=== PATIENT | male | born 1960 | race Caucasian/White ===

== ENCOUNTER 2017-11-04 11:07 | Inpatient (IN) | payer OTHER ==
[2017-11-04 11:43] VITALS: BMI 38.0
--- NOTE | 2017-11-04 13:49 | HP ---
CIWA Score - CIWA Score Nausea/Vomitin Muscle Tremors: 3 Anxiety: 4-Mod. Anxious/Guarded Agitation: 2 Paroxysmal Sweats: 2 Orientation: 0-Oriented Tacttile Disturbances: 0-None Auditory Disturbances: 2-Mild Harshness/Frighten Visual Disturbances: 0-None Headache: 2-Mild CIWA-Ar Total Score: 20 Admission ROS S - HPI Chief Complaint: "I have been trying for many years to stop on my own, but I know that this is the first strep that I have to take." Patient is here to Detox from Alcohol. Allergies/Adverse Reactions: Allergies Allergy/AdvReac Type Severity Reaction Status Date / Time No Known Allergies Allergy Verified 11/04/17 11:55 History of Present Illness: Patient is a 57 YO male here to Detox from Alcohol. Patient has had 1 previous Detox admission at [facility] (2016 - did not complete). Patient has had several detox admission in last few years (most recent: [place], [place]; 02/2015). Longest recent period of sobriety: approx. 6 months (2015 - 08/2016). Exam Limitations: No Limitations - Ebola screening Have you traveled outside of the country in the last 21 days: No Have you had contact with anyone from an Ebola affected area: No Have you been sick,other than usual withdrawal symptoms: No Do you have a fever: No - Review of Systems Constitutional: Chills, Diaphoresis, Fever, Loss of Appetite, Malaise, Night Sweats, Changes in sleep, Unexplained wgt Loss (Lost approx. 30 lbs. over last 1.5 months.) EENT: reports: Tearing, Nose Congestion, Sinus Pressure Respiratory: reports: Shortness of Breath Cardiac: reports: Palpitations GI: reports: Diarrhea, Nausea, Poor Appetite, Vomiting, Abdominal cramping : reports: No Symptoms Reported Musculoskeletal: reports: Back Pain, Neck Pain, Joint Stiffness Integumentary: reports: No Symptoms Reported Neuro: reports: Headache, Numbness (Occasional in Left Foot.), Tingling ( Occasional in Left Foot.), Tremors Endocrine: reports: No Symptoms Reported Hematology: reports: No Symptoms Reported Psychiatric: reports: Judgement Intact, Mood/Affect Appropiate, Orientated x3, Anxious, Depressed (Meds. in past; None recently.) Other Systems: Reviewed and Negative Patient History - Patient Medical History Hx Anemia: No Hx Asthma: No Hx Chronic Obstructive Pulmonary Disease (COPD): No Hx Cancer: No Hx Cardiac Disorders: Yes (Murmur since (no treatment).) Hx Congestive Heart Failure: No Hx Hypertension: Yes (No meds. in past.) Hx Hypercholesterolemia: No Hx Pacemaker: No HX Cerebrovascular Accident: No Hx Seizures: No Hx Dementia: No Hx Diabetes: No Hx Gastrointestinal Disorders: No Hx Liver Disease: No Hx Genitourinary Disorders: No Hx Sexually Transmitted Disorders: No Hx Renal Disease (ESRD): No Hx Thyroid Disease: No Hx Human Immunodeficiency Virus (HIV): No (@ 04/26: LAST NEGATIVE) Hx Hepatitis C: No (@ 04/26: LAST NEGATIVE) Hx Depression: Yes (Meds. in past, none currently.) Hx Suicide Attempt: No (PATIENT DENIES CURRENT SI / HI.) Hx Bipolar Disorder: Yes (Was treated for Bipolar Disorder in [facility] (02/24 - 08/25).) Hx Schizophrenia: No Other Medical History: DENIES. - Patient Surgical History Past Surgical History: Yes Hx Neurologic Surgery: No Hx Cataract Extraction: No Hx Cardiac Surgery: No Hx Lung Surgery: No Hx Breast Surgery: No Hx Breast Biopsy: No Hx Abdominal Surgery: No Hx Appendectomy: No Hx Cholecystectomy: No Hx Genitourinary Surgery: No Hx Section: No Hx Orthopedic Surgery: Yes (ACL Repair, right knee in 1985) Other Surgical History: DENIES. Anesthesia Reaction: No - PPD History Previous Implant?: Yes Documented Results: Negative w/o proof Implanted On Prior [facility] Admission?: Yes Date: 09/09/15 PPD to be Administered?: Yes - Reproductive History Patient is a Female of Child Bearing Age (11 -55 yrs old): No (PATIENT IS MALE.) - Smoking Cessation Smoking history: Never smoked Have you smoked in the past 12 months: No Cigars Per Day: 0 Hx Chewing Tobacco Use: No Initiated information on smoking cessation: No - Substance & Tx. History Hx Alcohol Use: Yes Hx Substance Use: Yes Substance Use Type: Alcohol Hx Substance Use Treatment: Yes (Several Previous Admissions (Last: [facility], 08/2016); [facility] (2016)) - Substances Abused Alcohol-vodka/beer Route: Oral Frequency: Daily Amount used: 1 3/4 liters/1 case Age of first use: 13 Date of Last Use: 11/04/17 Family Disease History - Family Disease History Family Disease History: Heart Disease: Father ([place], ), Other: Father, Mother ([place], ), Sister () Admission Physical Exam [facility] - Vital Signs Vital Signs: Vital Signs - 24 hr 11/04/17 11:40 Temperature 97.2 F L Pulse Rate 100 H Respiratory 20 Rate Blood Pressure 153/95 - Physical General Appearance: Yes: Nourished, Appropriately Dressed, Mild Distress, Obese , Tremorous, Anxious HEENTM: Yes: Hearing grossly Normal, Normocephalic, Normal Voice, [place], Pharynx Normal Respiratory: Yes: Chest Non-Tender, Lungs Clear, No Respiratory Distress, No Accessory Muscle Use Neck: Yes: No masses,lesions,Nodules, Supple, Trachea in good position Breast: Yes: Breast Exam Deferred Cardiology: Yes: Regular Rhythm, Regular Rate, S1, S2 Abdominal: Yes: Normal Bowel Sounds, Non Tender, Soft, Protuberent Genitourinary: Yes: Within Normal Limits Back: Yes: CVA Tenderness, Decreased Range of Motion Musculoskeletal: Yes: Gait Steady, Back pain, Joint Stiffness, Muscle Pain Extremities: Yes: Normal Capillary Refill, Tremors Neurological: Yes: Fully Oriented, Alert, Normal Mood/Affect, Normal Response Integumentary: Yes: Normal Color, Dry, Warm Lymphatic: Yes: Within Normal Limits - Diagnostic (1) History of depression Current Visit: Yes Status: Suspected (2) Alcohol dependence with uncomplicated withdrawal Current Visit: Yes Status: Acute (3) History of bipolar disorder Current Visit: Yes Status: Acute (4) Hypertension Current Visit: Yes Status: Chronic Qualifiers: Hypertension type: unspecified Qualified Code(s): I10 - Essential (primary ) hypertension Comment: No Currently Prescribed Meds. (5) History of cardiac murmur Current Visit: Yes Status: Chronic Cleared for Admission [facility] - Detox or Rehab [facility] Level of Care: Medically Managed Detox Regimen/Protocol: Librium [facility] Breath Alcohol Content Breath Alcohol Content: 0.078 Urine Drug Screen - Results Drug Screen Negative: No Urine Drug Screen Results: TCA-Tricyclic Antidepress
[2017-11-04] MEDS ORDERED: MAGNESIUM HYDROX 2400MG/30ML ORAL SUSPENSION 30 ML CUP PO PRN (14:20)
[2017-11-04] MEDS ORDERED: guaiFENesin/D-METHORPHAN HB 10 ML UNIT-DOSE CUPS PO PRN (14:20)
[2017-11-04] MEDS ORDERED: MENTHOL/PHENOL 1 EACH UD MM PRN (14:20)
[2017-11-04] MEDS ORDERED: LOPERAMIDE HCL 2 MG CAPSULE PO PRN (14:20)
[2017-11-04] MEDS ORDERED: MAGNESIUM CITRATE 300 ML BOTTLE PO PRN (14:20)
[2017-11-04] MEDS ORDERED: ACETAMINOPHEN 325 MG TABLET (FP) PO PRN (14:20)
[2017-11-04] MEDS ORDERED: MAG HYDROX/AL HYDROX/SIMETH 30 ML UNIT-DOSE CUP PO PRN (14:20)
[2017-11-04] MEDS ORDERED: P-EPHED 60MG/TRIPROLIDI 2.5MG TABLET PO PRN (14:20)
[2017-11-04] MEDS ORDERED: cloNIDine HCL 0.1 MG TABLET PO ONE (14:30)
[2017-11-04] MEDS ORDERED: chlordiazePOXIDE HCL 25 MG CAPSULE PO ONE (14:35)
--- NOTE | 2017-11-04 17:07 | CONSULT ---
[facility] Psychiatric Consult - Data Date of interview: 11/04/17 Admission source: [facility] Identifying data: Patient is a 57 year old single male, without kids, domiciled , and currently unemployed. This is one of multiple admissions for patient. Pt. admitted to for alcohol dependence. Substance Abuse History: Smoking Cessation. Smoking history: Never smoked. Have you smoked in the past 12 months: No. Cigars Per Day: 0. Hx Chewing Tobacco Use: No. Initiated information on smoking cessation: No. - Substance & Tx. History. Hx Alcohol Use: Yes. Hx Substance Use: Yes. Substance Use Type : Alcohol. Hx Substance Use Treatment: Yes (Several Previous Admissions (Last: [facility], 08/2016); [facility] (2016)). - Substances Abused. Alcohol- vodka/beer. Route: Oral. Frequency: Daily. Amount used: 1 3/4 liters/1 case. Age of first use: 13. Date of Last Use: 11/04/17 Medical History: Murmur, hypertension Psychiatric History: Patient denies h/o psychiatric hospitalizations and suicide attempt. Pt. reports seeing a psychiatrist at [facility] in 2016. States he was diagnosed with bipolar disorder. Patient only recalls taking trazdone 300mg. Reports still having trazodone left over from his trazodone prescription. Last took trazodone 300mg 3 days ago. Pt. requesting trazodone 50mg. Physical/Sexual Abuse/Trauma History: Denies. Mental Status Exam - Mental Status Exam Alert and Oriented to: Time, Place, Person Cognitive Function: Good Patient Appearance: Well Groomed Mood: Hopeful, Euthymic Affect: Mood Congruent Patient Behavior: Appropriate, Cooperative Speech Pattern: Clear, Appropriate Voice Loudness: Normal Thought Process: Intact, Goal Oriented Thought Disorder: Not Present Hallucinations: Denies Suicidal Ideation: Denies Homicidal Ideation: Denies Insight/Judgement: Poor Sleep: Poorly Appetite: Fair Muscle strength/Tone: Normal Gait/Station: Normal Psychiatric Findings - Problem List ([place] 1, 2,3) (1) Alcohol dependence with uncomplicated withdrawal Current Visit: Yes Status: Acute (2) Insomnia Current Visit: Yes Status: Acute (3) Alcohol-induced mood disorder Current Visit: Yes Status: Suspected - Initial Treatment Plan Initial Treatment Plan: Psychoeducation provided. Detoxification in progress. Trazodone 50mg qhs ordered. Benefits and side effects discussed. Pt. made aware of the risk of priapism when accepting trazodone. Verbal consent given.
[2017-11-04] MEDS: chlordiazePOXIDE HCL 25 MG CAPSULE PO SCH ×2 (17:24→22:35)
[2017-11-04] MEDS: chlordiazePOXIDE HCL 25 MG CAPSULE PO PRN (20:24)
[2017-11-04] MEDS ORDERED: MELATONIN 5 MG TABLETS PO PRN (22:00)
[2017-11-04] MEDS: THIAMINE HCL 100 MG TABLET (FP) PO SCH (22:34)
[2017-11-04] MEDS: traZODone HCL 50 MG TABLET (FP) PO SCH (22:35)
[2017-11-05] MEDS: chlordiazePOXIDE HCL 25 MG CAPSULE PO SCH ×4 (05:32→22:43)
[2017-11-05 10:19] LABS: HEMATOCRIT 43.6 % (35.4-49); MCH 31.2 pg (25.7-33.7); MCHC 34.5 g/dl (32.0-35.9); MEAN CELL VOLUME 90.5 fl (80-96); MEAN PLT VOLUME 7.8 fl (7.5-11.1); PLATELET COUNT 215 K/MM3 (134-434); RBC 4.82 M/mm3 (4.00-5.60); RDW 13.2 % (11.9-15.9); WHITE BLOOD COUNT 6.5 K/mm3 (4.0-10.0)
[2017-11-05] MEDS: PRENATAL VITAMINS W/ FOLIC ACID TABLET (FP) PO SCH (10:38)
[2017-11-05 10:39] LABS: URINE APPEARANCE TURBID; URINE BILIRUBIN NEGATIVE (<2.0 mg/dL); URINE COLOR YELLOW; URINE GLUCOSE (UA) 1+ (NEGATIVE); URINE KETONE NEGATIVE (NEGATIVE); URINE LEUK ESTERASE NEGATIVE (NEGATIVE); URINE NITRITE NEGATIVE (NEGATIVE); URINE UROBILINOGEN NEGATIVE mg/dL (0.2-1.0)
[2017-11-05 10:39] LABS: CHLORIDE 99 mmol/L (98-107); POTASSIUM 4.5 mmol/L (3.5-5.1); SODIUM 136 mmol/L (136-145)
[2017-11-05 10:42] LABS: URINE PROTEIN 1+ (NEGATIVE)
[2017-11-05 10:47] LABS: URINE BACTERIA RARE /hpf (NONE SEEN); URINE MUCUS RARE
[2017-11-05 10:47] LABS: ALBUMIN 3.8 g/dl (3.4-5.0); ALK PHOS 76 U/L (45-117); ANION GAP 11 (8-16); BILIRUBIN,TOTAL 0.8 mg/dL (0.2-1.0); BLOOD UREA NITROGEN 13 mg/dL (7-18); CALCIUM 8.6 mg/dL (8.5-10.1); CO2 26 mmol/L (21-32); CREATININE 1.2 mg/dL (0.7-1.3); GLUCOSE,RANDOM 143 mg/dL (74-106); SGOT/AST 64 U/L (15-37); SGPT/ALT 55 U/L (12-78); TOT PROT 8.1 g/dl (6.4-8.2)
[2017-11-05] MEDS ORDERED: cloNIDine HCL 0.1 MG TABLET PO ONE (14:00)
[2017-11-05] MEDS: chlordiazePOXIDE HCL 25 MG CAPSULE PO PRN (15:17)
--- NOTE | 2017-11-05 18:53 | PN ---
[facility] CIWA - CIWA Score Nausea/Vomitin-No Nausea/No Vomiting Muscle Tremors: 4-Moderate,w/Arms Extend Anxiety: 5 Agitation: 4-Moderately Restless Paroxysmal Sweats: 3 Orientation: 0-Oriented Tacttile Disturbances: 1-Very Mild Itch/Numbness Auditory Disturbances: 0-None Visual Disturbances: 2-Mild Sensitivity Headache: 0-None Present CIWA-Ar Total Score: 19 BHS Progress Note (SOAP) Subjective: Body Aches, Sweating, Tremors, Anxious. Objective: PATIENT A & O X 3, OBSERVED AMBULATING ON UNIT. NO ACUTE DISTRESS. 11/05/17 18:50 Vital Signs Temperature 97.1 F L 11/05/17 18:30 Pulse Rate 109 H 11/05/17 18:30 Respiratory Rate 21 11/05/17 18:30 Blood Pressure 148/93 11/05/17 18:30 O2 Sat by Pulse Oximetry (%) Laboratory Tests 11/04/17 11/05/17 11/05/17 12:00 05:30 05:30 WBC 6.5 RBC 4.82 Hgb 15.0 Hct 43.6 MCV 90.5 MCH 31.2 MCHC 34.5 RDW 13.2 Plt Count 215 MPV 7.8 Sodium 136 Potassium 4.5 Chloride 99 Carbon Dioxide 26 Anion Gap 11 BUN 13 Creatinine 1.2 Creat Clearance w eGFR > 60 Random Glucose 143 H D Calcium 8.6 Total Bilirubin 0.8 AST 64 H D ALT 55 D Alkaline Phosphatase 76 Total Protein 8.1 Albumin 3.8 Urine Color Urine Appearance Urine pH Ur Specific [place] Urine Protein Urine Glucose (UA) Urine Ketones Urine Blood Urine Nitrite Urine Bilirubin Urine Urobilinogen Ur Leukocyte Esterase Urine WBC (Auto) Urine RBC (Auto) Urine Bacteria Urine Mucus RPR Titer HIV 1&2 Antibody Screen Negative HIV P24 Antigen Negative 11/05/17 11/05/17 05:30 05:50 WBC RBC Hgb Hct MCV MCH MCHC RDW Plt Count MPV Sodium Potassium Chloride Carbon Dioxide Anion Gap BUN Creatinine Creat Clearance w eGFR Random Glucose Calcium Total Bilirubin AST ALT Alkaline Phosphatase Total Protein Albumin Urine Color Yellow Urine Appearance Turbid Urine pH 5.0 Ur Specific [place] 1.023 Urine Protein 1+ H Urine Glucose (UA) 1+ H Urine Ketones Negative Urine Blood Negative Urine Nitrite Negative Urine Bilirubin Negative Urine Urobilinogen Negative Ur Leukocyte Esterase Negative Urine WBC (Auto) None Urine RBC (Auto) 4 Urine Bacteria Rare Urine Mucus Rare RPR Titer Nonreactive HIV 1&2 Antibody Screen HIV P24 Antigen LABS NOTED. Assessment: 11/05/17 18:50 WITHDRAWAL SYMPTOMS. HYPERTENSION. Plan: CONTINUE DETOX. INCREASE DAILY PO FLUID INTAKE. CLONIDINE, 0.1 MG PO X 1, FOLLOWED BY CLONIDINE, 0.1 MG PO BID FOR SEVERE WITHDRAWAL SYMPTOMS AND FOR ELEVATED BP. PRN FLEXERIL FOR BODY ACHES/ MUSCLE SPASMS. BGM ACBK FOR ELEVATED ADMISSION RANDOM GLUCOSE LEVEL.
[2017-11-05] MEDS: traZODone HCL 50 MG TABLET (FP) PO SCH (22:43)
[2017-11-05] MEDS: cloNIDine HCL 0.1 MG TABLET PO SCH (22:43)
[2017-11-05] MEDS: THIAMINE HCL 100 MG TABLET (FP) PO SCH (22:43)
[2017-11-06] MEDS: chlordiazePOXIDE HCL 25 MG CAPSULE PO SCH ×2 (06:11→10:46)
[2017-11-06] MEDS: CYCLOBENZAPRINE HCL 10 MG TABLET (FP) PO PRN ×3 (06:15→22:30)
[2017-11-06] MEDS: cloNIDine HCL 0.1 MG TABLET PO SCH ×2 (10:46→22:30)
[2017-11-06] MEDS: PRENATAL VITAMINS W/ FOLIC ACID TABLET (FP) PO SCH (10:46)
[2017-11-06] MEDS: IBUPROFEN 400 MG TABLET (FP) PO PRN ×2 (10:48→22:32)
[2017-11-06] MEDS: chlordiazePOXIDE HCL 25 MG CAPSULE PO PRN ×2 (12:43→18:39)
[2017-11-06] MEDS: chlordiazePOXIDE 5 MG CAPSULE PO SCH ×2 (16:39→22:30)
--- NOTE | 2017-11-06 17:37 | PN ---
S CIWA - CIWA Score Nausea/Vomitin-Mild Nausea/No Vomiting Muscle Tremors: 2 Anxiety: 4-Mod. Anxious/Guarded Agitation: 4-Moderately Restless Paroxysmal Sweats: 2 Orientation: 0-Oriented Tacttile Disturbances: 0-None Auditory Disturbances: 0-None Visual Disturbances: 0-None Headache: 0-None Present CIWA-Ar Total Score: 13 BHS Progress Note (SOAP) Subjective: pt states that he is not that good- was able to sleep last night Objective: 11/06/17 17:33 Vital Signs - 24 hr 11/05/17 11/05/17 11/06/17 18:30 23:02 00:30 Temperature 97.1 F L 96.6 F L Pulse Rate 109 H 98 H Respiratory 21 18 16 Rate Blood Pressure 148/93 177/107 11/06/17 11/06/17 11/06/17 06:39 07:35 09:29 Temperature 97.0 F L 97.2 F L 98.9 F Pulse Rate 89 93 H 94 H Respiratory 18 18 18 Rate Blood Pressure 156/100 153/101 171/98 11/06/17 13:46 Temperature 97.2 F L Pulse Rate 104 H Respiratory 20 Rate Blood Pressure 142/103 increased pulse rate and BP Laboratory Tests 11/04/17 11/05/17 11/05/17 12:00 05:30 05:30 WBC 6.5 RBC 4.82 Hgb 15.0 Hct 43.6 MCV 90.5 MCH 31.2 MCHC 34.5 RDW 13.2 Plt Count 215 MPV 7.8 Sodium 136 Potassium 4.5 Chloride 99 Carbon Dioxide 26 Anion Gap 11 BUN 13 Creatinine 1.2 Creat Clearance w eGFR > 60 Random Glucose 143 H D Calcium 8.6 Total Bilirubin 0.8 AST 64 H D ALT 55 D Alkaline Phosphatase 76 Total Protein 8.1 Albumin 3.8 Urine Color Urine Appearance Urine pH Ur Specific [place] Urine Protein Urine Glucose (UA) Urine Ketones Urine Blood Urine Nitrite Urine Bilirubin Urine Urobilinogen Ur Leukocyte Esterase Urine WBC (Auto) Urine RBC (Auto) Urine Bacteria Urine Mucus RPR Titer Hep C Ab Diagnostic Liver Fibrosis Interp HIV 1&2 Antibody Screen Negative HIV P24 Antigen Negative 11/05/17 11/05/17 11/05/17 05:30 05:30 05:50 WBC RBC Hgb Hct MCV MCH MCHC RDW Plt Count MPV Sodium Potassium Chloride Carbon Dioxide Anion Gap BUN Creatinine Creat Clearance w eGFR Random Glucose Calcium Total Bilirubin AST ALT Alkaline Phosphatase Total Protein Albumin Urine Color Yellow Urine Appearance Turbid Urine pH 5.0 Ur Specific [place] 1.023 Urine Protein 1+ H Urine Glucose (UA) 1+ H Urine Ketones Negative Urine Blood Negative Urine Nitrite Negative Urine Bilirubin Negative Urine Urobilinogen Negative Ur Leukocyte Esterase Negative Urine WBC (Auto) None Urine RBC (Auto) 4 Urine Bacteria Rare Urine Mucus Rare RPR Titer Nonreactive Hep C Ab Diagnostic <0.1 Liver Fibrosis Interp HIV 1&2 Antibody Screen HIV P24 Antigen labs WNL Assessment: 11/06/17 17:36 Patient is here to Detox from Alcohol. Plan: continue detox protocol d/w pt that he can access the prn meds if he needs for Sx relief
[2017-11-06] MEDS: traZODone HCL 50 MG TABLET (FP) PO SCH (22:30)
[2017-11-06] MEDS: THIAMINE HCL 100 MG TABLET (FP) PO SCH (22:30)
[2017-11-07] MEDS: chlordiazePOXIDE 5 MG CAPSULE PO SCH ×2 (05:36→10:28)
[2017-11-07] MEDS: CYCLOBENZAPRINE HCL 10 MG TABLET (FP) PO PRN ×2 (05:38→18:02)
[2017-11-07] MEDS: PRENATAL VITAMINS W/ FOLIC ACID TABLET (FP) PO SCH (10:28)
[2017-11-07] MEDS: cloNIDine HCL 0.1 MG TABLET PO SCH ×2 (10:28→22:37)
--- NOTE | 2017-11-07 11:10 | EKG ---
Test Reason : Blood Pressure : / mmHG Vent. Rate : 104 BPM Atrial Rate : 104 BPM P-R Int : 174 ms QRS Dur : 104 ms QT Int : 352 ms P-R-T Axes : 073 045 075 degrees QTc Int : 462 ms SINUS TACHYCARDIA ANTEROSEPTAL INFARCT , AGE UNDETERMINED ABNORMAL ECG NO PREVIOUS ECGS AVAILABLE Confirmed by SCAR VAZQUEZ MD ([id number]) on 11/07/2017 11:10:16 AM Referred By: Confirmed By:SCAR VAZQUEZ MD
[2017-11-07] MEDS: chlordiazePOXIDE HCL 25 MG CAPSULE PO PRN (12:46)
--- NOTE | 2017-11-07 13:30 | PN ---
BHS Progress Note (SOAP) Subjective: ANXIETY,SWEATS,SLIGHT TREMORS,"SICK TO MY STOMACH". Objective: 11/07/17 13:28 Vital Signs 11/07/17 11/07/17 06:24 09:26 Temperature 96.9 F L 96.7 F L Pulse Rate 80 72 Respiratory 18 18 Rate Blood Pressure 157/100 136/74 Laboratory Tests 11/04/17 11/05/17 11/05/17 12:00 05:30 05:30 WBC 6.5 RBC 4.82 Hgb 15.0 Hct 43.6 MCV 90.5 MCH 31.2 MCHC 34.5 RDW 13.2 Plt Count 215 MPV 7.8 Sodium 136 Potassium 4.5 Chloride 99 Carbon Dioxide 26 Anion Gap 11 BUN 13 Creatinine 1.2 Creat Clearance w eGFR > 60 Random Glucose 143 H D Calcium 8.6 Total Bilirubin 0.8 AST 64 H D ALT 55 D Alkaline Phosphatase 76 Total Protein 8.1 Albumin 3.8 Urine Color Urine Appearance Urine pH Ur Specific [place] Urine Protein Urine Glucose (UA) Urine Ketones Urine Blood Urine Nitrite Urine Bilirubin Urine Urobilinogen Ur Leukocyte Esterase Urine WBC (Auto) Urine RBC (Auto) Urine Bacteria Urine Mucus RPR Titer Hep C Ab Diagnostic Liver Fibrosis Interp HIV 1&2 Antibody Screen Negative HIV P24 Antigen Negative 11/05/17 11/05/17 11/05/17 05:30 05:30 05:50 WBC RBC Hgb Hct MCV MCH MCHC RDW Plt Count MPV Sodium Potassium Chloride Carbon Dioxide Anion Gap BUN Creatinine Creat Clearance w eGFR Random Glucose Calcium Total Bilirubin AST ALT Alkaline Phosphatase Total Protein Albumin Urine Color Yellow Urine Appearance Turbid Urine pH 5.0 Ur Specific [place] 1.023 Urine Protein 1+ H Urine Glucose (UA) 1+ H Urine Ketones Negative Urine Blood Negative Urine Nitrite Negative Urine Bilirubin Negative Urine Urobilinogen Negative Ur Leukocyte Esterase Negative Urine WBC (Auto) None Urine RBC (Auto) 4 Urine Bacteria Rare Urine Mucus Rare RPR Titer Nonreactive Hep C Ab Diagnostic <0.1 Liver Fibrosis Interp HIV 1&2 Antibody Screen HIV P24 Antigen Assessment: 11/07/17 13:29 WITHDRAWAL SX Plan: CONTINUE DETOX MONITOR PATIENT'S FUTHER GI STATUS--ZOFRAN IF NEEDED.
[2017-11-07] MEDS: chlordiazePOXIDE HCL 10 MG CAPSULE PO SCH ×2 (18:01→22:37)
[2017-11-07] MEDS: traZODone HCL 50 MG TABLET (FP) PO SCH (22:37)
[2017-11-07] MEDS: THIAMINE HCL 100 MG TABLET (FP) PO SCH (22:37)
[2017-11-08] MEDS: chlordiazePOXIDE HCL 10 MG CAPSULE PO SCH (05:30)
[2017-11-08] MEDS ORDERED: cloNIDine HCL 0.1 MG TABLET PO ONE (05:48)
[2017-11-08 06:31] VITALS: TEMP 97
[2017-11-08 07:27] VITALS: BP 165/102; PULSE 81
[2017-11-08] MEDS: cloNIDine HCL 0.1 MG TABLET PO SCH (09:48)
[2017-11-08] MEDS: PRENATAL VITAMINS W/ FOLIC ACID TABLET (FP) PO SCH (09:49)
--- NOTE | 2017-11-08 14:41 | DS ---
[facility] Detox Discharge Summary Admission Date: 11/04/17 Discharge Date: 11/08/17 - History Present History: Alcohol Dependence Additional Comments: DETOX COMPLETED. ALERT O X 3. NAD. F/U AT [facility]. Pertinent Past History: PLEASE SEE DX BELOW - Physical Exam Results Vital Signs: Vital Signs Temperature 97 F L 11/08/17 06:30 Pulse Rate 81 11/08/17 07:27 Respiratory Rate 20 11/08/17 06:30 Blood Pressure 165/102 11/08/17 07:27 O2 Sat by Pulse Oximetry (%) Pertinent Admission Physical Exam Findings: WITHDRAWAL SX Laboratory Tests 11/04/17 11/05/17 11/05/17 12:00 05:30 05:30 WBC 6.5 RBC 4.82 Hgb 15.0 Hct 43.6 MCV 90.5 MCH 31.2 MCHC 34.5 RDW 13.2 Plt Count 215 MPV 7.8 Sodium 136 Potassium 4.5 Chloride 99 Carbon Dioxide 26 Anion Gap 11 BUN 13 Creatinine 1.2 Creat Clearance w eGFR > 60 Random Glucose 143 H D Calcium 8.6 Total Bilirubin 0.8 AST 64 H D ALT 55 D Alkaline Phosphatase 76 Total Protein 8.1 Albumin 3.8 Urine Color Urine Appearance Urine pH Ur Specific [place] Urine Protein Urine Glucose (UA) Urine Ketones Urine Blood Urine Nitrite Urine Bilirubin Urine Urobilinogen Ur Leukocyte Esterase Urine WBC (Auto) Urine RBC (Auto) Urine Bacteria Urine Mucus RPR Titer Hep C Ab Diagnostic Liver Fibrosis Interp HIV 1&2 Antibody Screen Negative HIV P24 Antigen Negative 11/05/17 11/05/17 11/05/17 05:30 05:30 05:50 WBC RBC Hgb Hct MCV MCH MCHC RDW Plt Count MPV Sodium Potassium Chloride Carbon Dioxide Anion Gap BUN Creatinine Creat Clearance w eGFR Random Glucose Calcium Total Bilirubin AST ALT Alkaline Phosphatase Total Protein Albumin Urine Color Yellow Urine Appearance Turbid Urine pH 5.0 Ur Specific [place] 1.023 Urine Protein 1+ H Urine Glucose (UA) 1+ H Urine Ketones Negative Urine Blood Negative Urine Nitrite Negative Urine Bilirubin Negative Urine Urobilinogen Negative Ur Leukocyte Esterase Negative Urine WBC (Auto) None Urine RBC (Auto) 4 Urine Bacteria Rare Urine Mucus Rare RPR Titer Nonreactive Hep C Ab Diagnostic <0.1 Liver Fibrosis Interp HIV 1&2 Antibody Screen HIV P24 Antigen - Treatment Hospital Course: Detox Protocol Followed, Detoxed Safely, Responded well, Discharged Condition Good - Medication Discharge Medications: Ambulatory Orders NK [No Known Home Medication] 11/04/17 - Diagnosis (1) Alcohol dependence with uncomplicated withdrawal Status: Acute (2) History of cardiac murmur Status: Chronic (3) Hypertension Status: Chronic Qualifiers: Hypertension type: essential hypertension Qualified Code(s): I10 - Essential (primary) hypertension - AMA Did Patient Leave Against Medical Advice: No
== END 2017-11-08 09:49 | disposition home or self-care (01) | DRG 775 ==
LOC: YASAS 11:07 → Y3N 14:10
PROVIDERS: ADMIT Surgery; ATTEND Surgery
PROC: HZ2ZZZZ Detoxification Services for Substance Abuse Treatment (ICD-10-PCS; principal; 2017-11-04)
DX: F10.230 Alcohol dependence with withdrawal, uncomplicated (principal); F10.24 Alcohol dependence with alcohol-induced mood disorder; F31.9 Bipolar disorder, unspecified; I10 Essential (primary) hypertension; R01.1 Cardiac murmur, unspecified; G47.00 Insomnia, unspecified
CPT/HCPCS: 36415; 80053; 81003; 81015; 85027; 86593; 86803; 87389; 93005; 93010; J0735

== ENCOUNTER 2017-12-15 16:28 | Emergency (ER) | payer SELFPAY ==
[2017-12-15 16:43] VITALS: BP 109/69; PULSE 100; TEMP 98.2; BMI 34.2
--- NOTE | 2017-12-15 17:46 | PDOC ---
Attending Attestation - Resident Resident Name: JuanchoTylor - ED Attending Attestation I have performed the following: I have examined & evaluated the patient, The case was reviewed & discussed with the resident, I agree w/resident's findings & plan, Exceptions are as noted - HPI HPI: 12/15/17 17:45 57y M hx of htn, etoh abuse, presents for detox. last drink at 11am. hx of ICU admission for 'withdrawals'. endorsers some nbnb vomiting and mild epigastric pain. pt ntoes symptoms consistent with prior Denies any hallucinations, cp, fever, abd pain,
[2017-12-15] MEDS ORDERED: chlordiazePOXIDE HCL 25 MG CAPSULE PO ONE (17:50)
[2017-12-15] MEDS ORDERED: ONDANSETRON 4 MG/2 ML VIAL IVPUSH ONE (17:50)
[2017-12-15] MEDS ORDERED: DICYCLOMINE HCL 10 MG CAPSULE PO ONE (17:51)
[2017-12-15] MEDS ORDERED: MAG HYDROX/AL HYDROX/SIMETH -MYLANTA- ORAL SUSPENSION PO ONE (17:51)
[2017-12-15] MEDS ORDERED: FAMOTIDINE 20 MG/50 ML IVPB 20 MG in PREMIX 50 IVPB ONE (17:51)
[2017-12-15] MEDS ORDERED: SODIUM CHLORIDE 1,000 ML IV ONE (17:51)
[2017-12-15] MEDS ORDERED: chlordiazePOXIDE HCL 25 MG CAPSULE ONE (18:53)
[2017-12-15] MEDS ORDERED: DICYCLOMINE HCL 10 MG CAPSULE ONE (18:54)
[2017-12-15] MEDS ORDERED: ONDANSETRON 4 MG/2 ML VIAL ONE (18:54)
[2017-12-15] MEDS ORDERED: MAG HYDROX/AL HYDROX/SIMETH 30 ML UNIT-DOSE CUP ONE (18:54)
[2017-12-15] MEDS ORDERED: FAMOTIDINE 20 MG/50 ML IVPB 20 MG/50 ML MG IVPB ONE (18:54)
--- NOTE | 2017-12-15 19:00 | PDOC ---
History of Present Illness - General Chief Complaint: Alcohol intoxication Stated Complaint: DETOX Time Seen by Provider: 12/15/17 16:58 History Source: Patient Exam Limitations: No Limitations - History of Present Illness Initial Comments: 12/15/17 19:04 57y M hx of htn, etoh abuse, presents for detox. last drink at 11am. hx of ICU admission for 'withdrawals', endorsers some nbnb vomiting and mild epigastric pain. pt ntoes symptoms consistent with prior Denies any hallucinations, cp, fever, abd pain, Past History - Past Medical History Allergies/Adverse Reactions: Allergies Allergy/AdvReac Type Severity Reaction Status Date / Time No Known Allergies Allergy Verified 12/15/17 16:41 Home Medications: Ambulatory Orders NK [No Known Home Medication] 11/04/17 Anemia: No Asthma: No Cancer: No Cardiac Disorders: Yes (Murmur since (no treatment).) CVA: No COPD: No CHF: No Dementia: No Diabetes: No GI Disorders: No Disorders: No HTN: Yes (No meds. in past.) Hypercholesterolemia: No Kidney Stones: No Liver Disease: No Seizures: No Thyroid Disease: No - Surgical History Abdominal Surgery: No Appendectomy: No Cardiac Surgery: No Cholecystectomy: No Lung Surgery: No Neurologic Surgery: No Orthopedic Surgery: Yes (ACL Repair, right knee in 1985) - Reproductive History Testicular Surgery: No - Suicide/Smoking/Psychosocial Hx Smoking History: Never smoked Have you smoked in the past 12 months: No Cigars Per Day: 0 Hx Alcohol Use: Yes Drug/Substance Use Hx: Yes Substance Use Type: Alcohol Hx Substance Use Treatment: Yes (Several Previous Admissions (Last: [facility], 08/2016); [facility] (2016)) *Physical Exam - Vital Signs Last Vital Signs Temp Pulse Resp BP Pulse Ox 98.2 F 100 H 18 109/69 96 12/15/17 16:41 12/15/17 16:41 12/15/17 16:41 12/15/17 16:41 12/15/17 16:41 ED Treatment Course - LABORATORY CBC & Chemistry Diagram: 12/15/17 18:42 12/15/17 18:42 Medical Decision Making - Medical Decision Making 12/15/17 18:59 pt notes that he meant to go to [facility] and not [facility] He is awake, alert, oriented x 3, atremmulous. ambulatory iwth normal gait. he is not clinically intoxicated nor in acute withdrawal will dc the patient to go to [facility] as he requests to leave and wants to go there for detox. *DC/Admit/Observation/Transfer Diagnosis at time of Disposition: Alcohol abuse - Discharge Dispostion Disposition: HOME Condition at time of disposition: Improved Decision to Admit order: No - Referrals - Patient Instructions Printed Discharge Instructions: DI for Alcohol Abuse Additional Instructions: Return to the emergency department immediately with ANY new, persistent or worsening symptoms. You MUST call and follow up with your doctor tomorrow for further evaluation of your symptoms. Results were discussed with you. Please make sure your doctor reviews the results of your emergency evaluation. If you had any xrays during your visit, it was read preliminarily by myself, a Radiologist will review it and if there are any additional findings we will call you. - Post Discharge Activity
[2017-12-15 19:08] LABS: BASO % 0.9 % (0-2.0); EOS % 4.2 % (0-4.5); HEMOGLOBIN 12.8 GM/dL (11.7-16.9); LYMPH % 41.3 % (8-40); MCH 32.1 pg (25.7-33.7); MCHC 34.5 g/dl (32.0-35.9); MEAN CELL VOLUME 92.9 fl (80-96); MEAN PLT VOLUME 7.8 fl (7.5-11.1); NEUT % 44.6 % (42.8-82.8); PLATELET COUNT 427 K/MM3 (134-434); RBC 3.98 M/mm3 (4.00-5.60); RDW 15.4 % (11.9-15.9); WHITE BLOOD COUNT 6.8 K/mm3 (4.0-10.0)
--- NOTE | 2017-12-15 19:27 | PDOC ---
History of Present Illness - General Chief Complaint: Alcohol intoxication Stated Complaint: DETOX Time Seen by Provider: 12/15/17 16:58 History Source: Patient Exam Limitations: No Limitations - History of Present Illness Initial Comments: 12/15/17 18:59 Mr. Crooks is a 57 yo M with a hx of HTN and alcoholism who presents to the emergency department for alcohol detoxification. His last drink was at 11am, as he was drinking over the past 24 hours. He denies a hx of tactile, visual, and auditory hallucinations, but endorses having a headache, tremors, anxiety, nausea, vomiting (30x over past 24 hours without blood), and diarrhea. His last withdrawal was 11/29/2017. Denies the following: fevers, chills, recent visual changes, chest pain, SOB, dysuria, hematuria, melena, hematochezia, and leg pain /swelling. Shx: L and R knee replacement Meds: trazadone Allergies: NKDA Social hx: Denies tobacco products and current substance abuse. Drinks "dozens of beers" per day wit vodka. Past History - Past Medical History Allergies/Adverse Reactions: Allergies Allergy/AdvReac Type Severity Reaction Status Date / Time No Known Allergies Allergy Verified 12/15/17 16:41 Home Medications: Ambulatory Orders NK [No Known Home Medication] 11/04/17 Anemia: No Asthma: No Cancer: No Cardiac Disorders: Yes (Murmur since (no treatment).) CVA: No COPD: No CHF: No Dementia: No Diabetes: No GI Disorders: No Disorders: No HTN: Yes (No meds. in past.) Hypercholesterolemia: No Kidney Stones: No Liver Disease: No Seizures: No Thyroid Disease: No - Surgical History Abdominal Surgery: No Appendectomy: No Cardiac Surgery: No Cholecystectomy: No Lung Surgery: No Neurologic Surgery: No Orthopedic Surgery: Yes (ACL Repair, right knee in 1985) - Reproductive History Testicular Surgery: No - Suicide/Smoking/Psychosocial Hx Smoking History: Never smoked Have you smoked in the past 12 months: No Cigars Per Day: 0 Hx Alcohol Use: Yes Drug/Substance Use Hx: Yes Substance Use Type: Alcohol Hx Substance Use Treatment: Yes (Several Previous Admissions (Last: [facility], 08/2016); [facility] (2016)) Review of Systems - Review of Systems Able to Perform ROS?: Yes Constitutional: No: Chills, Diaphoresis, Fever HEENTM: No: Eye Pain, Recent change in vision, Nose Pain, Throat Pain, Mouth Pain Respiratory: No: Cough, Shortness of Breath Cardiac (ROS): No: Chest Pain, Palpitations, Syncope, Chest Tightness ABD/GI: Yes: Diarrhea, Nausea, Vomiting, Abdominal cramping. No: Constipated, Difficulty Swallowing, Poor Fluid Intake, Rectal Bleeding, Tarry Stools : No: Burning, Dysuria, Hematuria Musculoskeletal: No: Back Pain, Muscle Weakness Integumentary: No: Rash Neurological: Yes: Headache, Tremors. No: Numbness, Weakness Psychiatric: No: Stressors Endocrine: No: Excessive Sweating, Unexplained Weight Gain Hematologic/Lymphatic: No: Anemia *Physical Exam - Vital Signs Last Vital Signs Temp Pulse Resp BP Pulse Ox 98.2 F 100 H 18 109/69 96 12/15/17 16:41 12/15/17 16:41 12/15/17 16:41 12/15/17 16:41 12/15/17 16:41 - Physical Exam General Appearance: Yes: Nourished, Appropriately Dressed HEENT: positive: EOMI, MERRILL Neck: positive: Trachea midline. negative: Lymphadenopathy (R), Lymphadenopathy (L) Respiratory/Chest: positive: Lungs Clear, Normal Breath Sounds Cardiovascular: positive: Regular Rhythm, Regular Rate, S1, S2. negative: Systolic Murmur Vascular Pulses: Dorsalis-Pedis (R): 3+, Doralis-Pedis (L): 3+ Gastrointestinal/Abdominal: positive: Normal Bowel Sounds, Tender (epigastric region) Lymphatic: negative: Adenopathy Musculoskeletal: positive: Normal Inspection. 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 Initial vitals: Initial Vital Signs Temp Pulse Resp BP Pulse Ox 98.2 F 100 H 18 109/69 96 09/06/18 16:41 12/15/17 16:41 12/15/17 16:41 12/15/17 16:41 12/15/17 16:41 Work up: Patient presented to the emergency department on behalf of a recommendation by his friend Tyler Christiancer who recommended that he come to the [facility] for detoxification given that Mr. Crooks does not have insurance. He wished to be discharged from our hospital as he made a mistake coming here instead of [facility]. He was clinically sober to proceed to [facility]. *DC/Admit/Observation/Transfer Diagnosis at time of Disposition: Alcohol abuse - Discharge Dispostion Disposition: HOME Condition at time of disposition: Improved Decision to Admit order: No - Referrals - Patient Instructions Printed Discharge Instructions: DI for Alcohol Abuse Additional Instructions: Return to the emergency department immediately with ANY new, persistent or worsening symptoms. You MUST call and follow up with your doctor tomorrow for further evaluation of your symptoms. Results were discussed with you. Please make sure your doctor reviews the results of your emergency evaluation. If you had any xrays during your visit, it was read preliminarily by myself, a Radiologist will review it and if there are any additional findings we will call you. - Post Discharge Activity
[2017-12-15 19:49] LABS: ALK PHOS 65 U/L (45-117); ANION GAP 13 MMOL/L (8-16); BILIRUBIN,TOTAL 0.2 mg/dL (0.2-1.0); BLOOD UREA NITROGEN 5 mg/dL (7-18); CALCIUM 8.9 mg/dL (8.5-10.1); CHLORIDE 108 mmol/L (98-107); CO2 23 mmol/L (21-32); CREATININE 0.8 mg/dL (0.7-1.3); GLUCOSE,RANDOM 109 mg/dL (74-106); LIPASE 164 U/L (73-393); MAGNESIUM 1.8 mg/dL (1.8-2.4); POTASSIUM 4.7 mmol/L (3.5-5.1); SGOT/AST 109 U/L (15-37); SGPT/ALT 160 U/L (12-78); SODIUM 144 mmol/L (136-145); TOT PROT 7.2 g/dl (6.4-8.2)
== END 2017-12-15 19:08 | disposition home or self-care (01) ==
LOC: JER 16:28
DX: F10.10 Alcohol abuse, uncomplicated (principal); I10 Essential (primary) hypertension
CPT/HCPCS: 36415; 80053; 82550; 82553; 83690; 83735; 84484; 85025; 99281-25